=== PATIENT | male | born 2000 | race Hispanic/Latino ===

== ENCOUNTER 2024-09-03 22:35 | Emergency (ER) | payer OTHER, SELFPAY ==
[2024-09-03] MEDS ORDERED: METHYLPREDNISOLONE 125 MG INJ ONE (23:11)
[2024-09-03] MEDS ORDERED: NA CHLORIDE 0.9% 1,000 ML ONE (23:12)
[2024-09-03] MEDS ORDERED: DIPHENHYDRAMINE 50 MG/ML VIAL ONE (23:12)
[2024-09-03] MEDS ORDERED: FAMOTIDINE 20 MG/2 ML VIAL IV ONE (23:12)
--- NOTE | 2024-09-04 00:11 | ER ---
Nurse's Notes [facility] Name: Evens Arreaga Oca Age: 24 yrs Sex: Male : 2000 Arrival Date: 09/03/2024 Time: 22:35 Bed 17 Private MD: Diagnosis: Allergic urticaria Presentation: 09/03 23:04 Chief complaint: Patient states: started getting a rash and itching all over about me1 22:30. Didn't eat anything new. Denies new detergent etc. Coronavirus screen: Vaccine status: Patient reports receiving the 2nd dose of the covid vaccine. Ebola Screen: No symptoms or risks identified at this time. Onset: The symptoms/episode began/occurred suddenly, 30 minute(s) ago. Anaphylaxis evaluation, no signs or symptoms of anaphylaxis were noted. Initial Sepsis Screen: Does the patient meet any 2 criteria? No. Patient's initial sepsis screen is negative. Does the patient have a suspected source of infection? No. Patient's initial sepsis screen is negative. Risk Assessment: Do you want to hurt yourself or someone else? Patient reports no desire to harm self or others. Onset of symptoms was September 03, 2024 at 22:30. 23:04 Method Of Arrival: Ambulatory me1 23:04 Acuity: LEILANI 3 me1 Historical: - Allergies: 23:05 No Known Allergies; me1 - Home Meds: 23:05 None [Active]; me1 - PMHx: 23:05 None; me1 - PSHx: 23:05 None; me1 - Immunization history:: Adult Immunizations up to date. - Infectious Disease History:: Denies. - Social history:: Smoking status: Patient denies any tobacco usage or history of. Screenin:00 [facility] ED Fall Risk Assessment (Adult) History of falling in the last 3 months, br2 including since admission No falls in past 3 months (0 pts) Confusion or Disorientation No (0 pts) Intoxicated or Sedated No (0 pts) Impaired Gait No (0 pts) Mobility Assist Device Used No (0 pt) Altered Elimination No (0 pt) Score/Fall Risk Level 0 - 2 = Low Risk Oriented to surroundings. Abuse screen: Denies threats or abuse. Nutritional screening: No deficits noted. Tuberculosis screening: No symptoms or risk factors identified. Assessment: 23:00 Reassessment: Patient and/or family updated on plan of care and expected duration. Pain br2 level reassessed. Patient is alert, oriented x 3, equal unlabored respirations, skin warm/dry/pink. General: Appears uncomfortable, Behavior is calm, cooperative. Pain: Denies pain. Neuro: Frias Agitation-Sedation Scale (RASS): 0 - Alert and Calm Level of Consciousness is awake, alert, Oriented to person, place, time, situation. Cardiovascular: Capillary refill < 3 seconds. Respiratory: Airway is patent Respiratory effort is even, unlabored, Respiratory pattern is regular, symmetrical, Breath sounds are clear bilaterally. GI: No signs and/or symptoms were reported involving the gastrointestinal system. : No signs and/or symptoms were reported regarding the genitourinary system. EENT: No signs and/or symptoms were reported regarding the EENT system. 09/04 01:00 Reassessment: Patient and/or family updated on plan of care and expected duration. Pain br2 level reassessed. Patient is alert, oriented x 3, equal unlabored respirations, skin warm/dry/pink. Patient states feeling better. 01:30 Reassessment: Patient and/or family updated on plan of care and expected duration. Pain br2 level reassessed. Patient is alert, oriented x 3, equal unlabored respirations, skin warm/dry/pink. Patient states symptoms have improved. Vital Signs: 09/03 23:04 BP 113 / 72; Pulse 81; Resp 19; Temp 98.3; Pulse Ox 100% ; Weight 79.38 kg; Height 5 me1 ft. 11 in. ; Pain 0/10; 09/04 00:45 BP 110 / 70; Pulse 74; Resp 18; Pulse Ox 100% on R/A; br2 09/03 23:04 Body Mass Index 24.41 (79.38 kg, 180.34 cm) me1 09/03 23:04 Pain Scale: Adult me1 ED Course: 09/03 22:41 Patient arrived in ED. [id number] 22:42 [facility] sb4 22:42 Nazario Jc MD is Attending Physician. sb4 23:00 Patient has correct armband on for positive identification. Bed in low position. Call br2 light in reach. Side rails up X 1. Provided Education on: PLAN OF CARE. 23:05 Triage completed. me1 23:05 Arm band placed on Patient placed in an exam room. me1 23:05 Inserted saline lock: 20 gauge in right antecubital area, using aseptic technique. br2 Blood collected. Flushed with 10 mL NS. 23:09 Debbie Palmer RN is Primary Nurse. br2 09/04 00:45 IV discontinued, intact, bleeding controlled, No redness/swelling at site. Pressure br2 dressing applied. 00:50 No provider procedures requiring assistance completed. br2 Administered Medications: 09/03 23:20 Drug: NS 0.9% IV 1000 ml IV at 1000 ml once; to be given as a bolus over 60 minutes br2 Route: IV; Rate: 1000 ml; Site: right antecubital; 09/04 00:30 Follow up: Response: No adverse reaction; IV Status: Completed infusion; IV Intake: br2 1000ml 09/03 23:20 Drug: MethylPrednisoLONE IVP 125 mg IVP once Route: IVP; Site: right antecubital; br2 09/04 01:00 Follow up: Response: No adverse reaction br2 09/03 23:20 Drug: Famotidine IVP 20 mg IVP once; dilute with 10 mL 0.9% NaCl; give over 2 minutes br2 Route: IVP; Site: right antecubital; 09/04 01:00 Follow up: Response: No adverse reaction br2 09/03 23:20 Drug: diphenhydrAMINE IVP 50 mg IVP once Route: IVP; Site: right antecubital; br2 09/04 01:00 Follow up: Response: No adverse reaction br2 Medication: 00:53 VIS not applicable for this client. br2 Intake: 00:30 IV: 1000ml; Total: 1000ml. br2 Outcome: 00:11 Discharge ordered by . sb4 00:45 Discharged to home ambulatory, br2 00:45 Condition: improved 00:45 Discharge instructions given to patient, Instructed on discharge instructions, follow up and referral plans. medication usage, Demonstrated understanding of instructions, follow-up care, medications, Prescriptions given X 2, 00:53 Patient left the ED. br2 Signatures: Shaneka Carlisle Sophia, PA-C PAFlakito [email or web address] Jagruti Duran RN RN me1 Debbie Palmer, RN RN br2
--- NOTE | 2024-09-04 00:11 | EDPHYS ---
Physician Documentation [facility] Name: Evens Arreaga Oca Age: 24 yrs Sex: Male : 2000 Arrival Date: 09/03/2024 Time: 22:35 Bed 17 Private MD: ED Physician Nazario Jc HPI: 09/04 01:01 This 24 yrs old Male presents to ER via Ambulatory with complaints of Itching, sb4 Rash. 01:01 The patient's rash thought to be caused by an unknown cause. The rash is located on the sb4 body diffusely. The rash can be described as urticarial. Onset: The symptoms/episode began/occurred just prior to arrival. Associated signs and symptoms: Pertinent positives: itching, Pertinent negatives: burning sensation, difficulty breathing, fever, nausea, Pain swelling of lips, swelling of throat, swelling of tongue, vomiting, wheezing. Treatment given at home: none. The patient has not experienced similar symptoms in the past. The patient has not recently seen a physician. Historical: - Allergies: 09/03 23:05 No Known Allergies; me1 - Home Meds: 23:05 None [Active]; me1 - PMHx: 23:05 None; me1 - PSHx: 23:05 None; me1 - Immunization history:: Adult Immunizations up to date. - Infectious Disease History:: Denies. - Social history:: Smoking status: Patient denies any tobacco usage or history of. ROS: 09/04 01:01 Constitutional: Negative for fever, chills, and weight loss, sb4 Skin: Positive for rash, diffusely, All other systems are negative, Exam: 01:01 Head/Face: Normocephalic, atraumatic. Eyes: Extra-ocular motions intact. Periorbital sb4 areas with no swelling, redness, or edema. ENT: Mucous membranes moist. 01:01 Constitutional: The patient appears alert, awake, uncomfortable, 01:01 ENT: Posterior pharynx: Airway: normal, no evidence of obstruction, patent, swelling, is not appreciated, 01:01 Skin: rash a moderate rash is noted, urticaria, and is diffusely located, Vital Signs: 09/03 23:04 BP 113 / 72; Pulse 81; Resp 19; Temp 98.3; Pulse Ox 100% ; Weight 79.38 kg; Height 5 me1 ft. 11 in. ; Pain 0/10; 09/04 00:45 BP 110 / 70; Pulse 74; Resp 18; Pulse Ox 100% on R/A; br2 09/03 23:04 Body Mass Index 24.41 (79.38 kg, 180.34 cm) me1 09/03 23:04 Pain Scale: Adult me1 MDM: 09/03 22:59 Medical Screening Exam initiated sb4 09/04 01:03 Data reviewed: vital signs, nurses notes, and as a result, I will discharge patient. sb4 Counseling: I had a detailed discussion with the patient and/or guardian regarding the historical points, exam findings, and any diagnostic results supporting the discharge/admit diagnosis, the need for outpatient follow up, for definitive care, to return to the emergency department if symptoms worsen or persist or if there are any questions or concerns that arise at home. 09/03 23:07 Order name: IV Start sb4 Administered Medications: 09/03 23:20 Drug: NS 0.9% IV 1000 ml IV at 1000 ml once; to be given as a bolus over 60 minutes br2 Route: IV; Rate: 1000 ml; Site: right antecubital; 09/04 00:30 Follow up: Response: No adverse reaction; IV Status: Completed infusion; IV Intake: br2 1000ml 09/03 23:20 Drug: MethylPrednisoLONE IVP 125 mg IVP once Route: IVP; Site: right antecubital; br2 09/04 01:00 Follow up: Response: No adverse reaction br2 09/03 23:20 Drug: Famotidine IVP 20 mg IVP once; dilute with 10 mL 0.9% NaCl; give over 2 minutes br2 Route: IVP; Site: right antecubital; 09/04 01:00 Follow up: Response: No adverse reaction br2 09/03 23:20 Drug: diphenhydrAMINE IVP 50 mg IVP once Route: IVP; Site: right antecubital; br2 09/04 01:00 Follow up: Response: No adverse reaction br2 Disposition: 23:23 Co-signature as Attending Physician, Nazario Jc MD I agree with the assessment sp4 and plan of care. I reviewed the patient's care provided by the Advanced Practice Provider and agree with the diagnosis and treatment plan. Disposition Summary: 09/04/24 00:11 Discharge Ordered Notes: Location: Home sb4 Problem: new sb4 Symptoms: have improved sb4 Condition: Stable sb4 Diagnosis - Allergic urticaria sb4 Followup: sb4 - With: Emergency Department - When: As needed - Reason: Trouble breathing, Worsening of condition Discharge Instructions: - Discharge Summary Sheet sb4 - Hives, [id number] sb4 Forms: - Patient Portal Instructions sb4 - Leadership Thank You Letter sb4 Prescriptions: - Pepcid 20 mg Oral Tablet - take 1 tablet ORAL route every 12 hours for 5 days; 10 tablet; Refills: 0, sb4 Product Selection Permitted - Prednisone 20 mg Oral Tablet - take 1 tablet ORAL route once daily for 5 days; 5 tablet; Refills: 0, Product sb4 Selection Permitted Signatures: Cathy Rizvi PA-C PA-C sb4 Nazario Jc MD MD sp4 Jagruti Duran RN RN me1 Debbie Palmer RN RN br2
[2024-09-04 05:55] VITALS: BP 113/72; TEMP 98.3; O2SAT 100
== END 2024-09-04 00:53 | disposition home or self-care (01) ==
LOC: ER 22:35
DX: L50.0 Allergic urticaria (principal)
CPT/HCPCS: 96361; 96374; 96375; 99284; J1200; J2919; J7030